=== PATIENT | male | born 1970 | race Caucasian/White ===

== ENCOUNTER 2016-07-29 11:34 | Emergency (ER) | payer SELFPAY ==
[~2016-07-29 11:34] MED LIST: ALBU8I INH; [UNRECOGNIZED DRUG - CODE] INH
[2016-07-29 11:52] VITALS: BP 137/83; PULSE 111; RESP 20; TEMP 98.8; O2SAT 94
--- NOTE | 2016-07-29 12:51 | PD ---
HPI Chief Complaint: ENT Complaint Time Seen by Provider: 12:49 Travel History International Travel<30 days: No Contact w/Intl Traveler<30days: No Traveled to known affect area: No History of Present Illness HPI 45-year-old male presents to the emergency room for evaluation of left-sided sore throat for the past 10 days. Patient states it started off as a scratchy throat and progressed to the point where he has pain with eating and drinking. He has been taking depw-jww-ptapzrf cough and cold medication without relief in symptoms. He reports chills and feeling hot but has not actually taken his temperature. Patient recently quit smoking because he was diagnosed COPD. He has smoke 10 cigarettes in the past 3 weeks. Patient denies nausea, vomiting, cough, and congestion. PFSH Past Medical History Asthma: Yes (as a child) Cardiovascular Problems: Yes (hx of htn but states never been dx or on any meds ) COPD: Yes Diminished Hearing: No Hypertension: Yes (hx of this but states takes no meds for it) Respiratory: Yes (asthma as a child, copd) Immunizations Current: Yes Tetanus Vaccination: < 5 Years Influenza Vaccination: No Past Surgical History Surgical History: No Previous Surgery Social History Alcohol Use: Yes (10 cigs in the past 3 weeks, states quit 3 weeks ago but now occas) Tobacco Use: No (1 1/2 PPD quit 3 weeks ago smoking packs states now only a few .) Substance Use: No (hx of cocaine, crack, THC use ) Allergies-Medications (Allergen,Severity, Reaction): Coded Allergies: No Known Allergies (Unverified , 07/29/16) Reported Meds & Prescriptions Reported Meds & Active Scripts Active Magic Mouthwash Pediatric/Adult Liq (Lidocaine/Diphenhydr/Alum/Mg/Simeth) 60 Ml Susp 5 Ml SWISH-SWAL ACHS Each 5mL contains: Diphenydramine 4.5mg, Viscous Lidocaine 2% 10mg, Maalox Advanced Regular Strength 2.7ml Review of Systems Except as stated in HPI: all other systems reviewed are Neg Physical Exam Narrative GENERAL: Well-nourished, well-developed male in no acute distress. Afebrile. Ambulatory. SKIN: Focused skin assessment warm/dry. HEAD: Normocephalic. EYES: No scleral icterus. No injection or drainage. ENT: Mucosa pink and moist. Mild erythema of the bilateral pharynx. No edema or exudates. No uvular edema. No uvular, palatal, or tonsillar deviation. Airway patent. Nasal turbinates appear normal without nasal blood, purulent drainage or septal hematoma. EARS: Bilateral pinnae and external canals appear within normal limits. Bilateral tympanic membranes without erythema, dullness or perforation. NECK: Supple, trachea midline. No JVD or lymphadenopathy. CARDIOVASCULAR: Regular rate and rhythm without murmurs, gallops, or rubs. No crackles, rales, wheezes, or rhonchi. RESPIRATORY: Breath sounds equal bilaterally. No accessory muscle use. Data Data Last Documented VS Vital Signs Date Time Temp Pulse Resp B/P Pulse Ox O2 Delivery O2 Flow Rate FiO2 07/29/16 12:02 16 07/29/16 11:52 98.8 111 137/83 94 Orders Group A Rapid Strep Screen (07/29/16 12:47) Strep Culture (Group A) (07/29/16 13:05) MDM Medical Decision Making Medical Screen Exam Complete: Yes Emergency Medical Condition: Yes Medical Record Reviewed: Yes Differential Diagnosis Viral Pharyngitis, streptococcal pharyngitis, laryngitis Narrative Course 45-year-old male presents to the emergency room for evaluation of left-sided sore throat past 10 days. It started off light and then got worse over time. Patient denies any other injuries except radiation to his left ear. Physical exam reveals mildly erythematous pharynx without edema or exudates. Bilateral tympanic membranes without evidence of infection. Patient is afebrile and well- appearing in the emergency room. Rapid strep is negative. Likely viral pharyngitis. He was discharged with Magic mouthwash. Patient told to follow- up with the [facility] if symptoms continue for evaluation of more chronic etiology of sore throat including cancer. Told to return for worsening symptoms. He understands and agrees to plan. Diagnosis Primary Impression: Acute viral pharyngitis Referrals: Primary Care Physician Patient Instructions: General Instructions, Pharyngitis (ED) Additional Instructions: Rest and drink plenty of fluids. Use Magic mouthwash as directed, as needed. Take ibuprofen with food as directed, as needed for pain. Follow-up with a primary care physician. Return to the emergency room for worsening symptoms. Scripts Hivbwjrqhjxgxjl-Gmsmryzje-Bzd-Alum-Simeth Liq (Magic Mouthwash Pediatric/Adult Liq)60 Ml Susp5 Ml SWISH-SWAL ACHS #60 ML Ref 0 Each 5mL contains: Diphenydramine 4.5mg, Viscous Lidocaine 2% 10mg, Maalox Advanced Regular Strength 2.7ml Prov:Valentin Rogers MD 07/29/16 Disposition: 01 DISCHARGE HOME Condition: Stable Karo Malhotra Jul 29, 2016 12:51
[2016-07-29] MEDS ORDERED: MAGICPED SWISH-SWAL (13:31)
== END 2016-07-29 14:12 | disposition home or self-care (01) ==
LOC: PHEFT 11:34
DX: J02.9 Acute pharyngitis, unspecified (principal); J44.9 Chronic obstructive pulmonary disease, unspecified; I10 Essential (primary) hypertension; Z72.0 Tobacco use
CPT/HCPCS: 87081; 87880; 99283